=== PATIENT | female | born 1995 | race Caucasian/White ===

== ENCOUNTER → 2017-11-30 | Outpatient (CLI) | payer OTHER | LOC: M RAD 20:00 | DX: M25.571 Pain in right ankle and joints of right foot (principal); R60.9 Edema, unspecified | CPT/HCPCS: 73610 ==

== ENCOUNTER → 2017-11-30 | Outpatient (REF) | payer OTHER | LOC: M LAB REF 10:36 | DX: J02.9 Acute pharyngitis, unspecified (principal) ==

== ENCOUNTER 2018-09-19 21:16 | Emergency (ER) | payer OTHER ==
[2018-09-19 22:03] LABS: BASO # 0.1 10^3/uL (0.0-0.2); BASO % 0.7 % (0.0-1.0); EOS # 0.3 10^3/uL (0.0-0.50); EOS % 3.9 % (0.0-3.0); HEMOGLOBIN 14.5 g/dl (12.0-15.5); IMMATURE GRANULOCYTE % 0.1 % (0-3.0); LYMPH # 2.7 10^3/uL (1.5-6.5); LYMPH % 39.4 % (24.0-44.0); MEAN CORPUSCULAR HEMOGLOBIN 29.5 pg (27.0-33.0); MEAN CORPUSCULAR HGB CONC 34.5 g/dl (32.0-36.5); MEAN CORPUSCULAR VOLUME 85.4 fl (80.0-96.0); MONO # 0.6 10^3/uL (0.0-0.8); MONO % 8.1 % (0.0-5.0); NEUTROPHILS # 3.2 10^3/uL (1.8-7.7); NEUTROPHILS % 47.8 % (36.0-66.0); PLATELET COUNT, AUTOMATED 255 10^3/uL (150-450); RED BLOOD COUNT 4.92 10^6/uL (4.00-5.40); WHITE BLOOD COUNT 6.8 10^3/uL (4.0-10.0)
[2018-09-19 22:09] LABS: CONTROL LINE HCG INT CTR LINE PRESENT; HCG, SERUM QUALITATIVE NEGATIVE (NEGATIVE)
[2018-09-19 22:09] LABS: D-DIMER QUANT 1089.1 ng/ml (<500)
[2018-09-19 22:25] LABS: ANION GAP 9 MEQ/L (8-16); BLOOD UREA NITROGEN 11 MG/DL (7-18); CALCIUM LEVEL 9.3 MG/DL (8.5-10.1); CARBON DIOXIDE LEVEL 25 MEQ/L (21-32); CHLORIDE LEVEL 105 MEQ/L (98-107); CK-MB VALUE MASS < 1.0 NG/ML (<3.6); CPK CREATINE PHOSPHOKINASE 54 U/L (26-192); CREATININE FOR GFR 1.15 MG/DL (0.55-1.30); FREE T4 0.93 NG/DL (0.76-1.46); GLOMERULAR FILTRATION RATE > 60.0 (>60); GLUCOSE, FASTING 94 MG/DL (70-100); MAGNESIUM LEVEL 1.9 MG/DL (1.8-2.4); MB/CK RELATIVE INDEX 1.85 (< OR =4); POTASSIUM SERUM 3.8 MEQ/L (3.5-5.1); SODIUM LEVEL 139 MEQ/L (136-145); TROPONIN I < 0.02 NG/ML (< 0.10)
[2018-09-19] MEDS ORDERED: ISOVUE-370 76% 100ML VIAL (Q9967) As Ordered (22:45)
== END 2018-09-20 01:05 | disposition home or self-care (01) ==
LOC: M ED 09-20 01:05
DX: R00.2 Palpitations (principal); R07.89 Other chest pain
CPT/HCPCS: Q9967

== ENCOUNTER 2019-03-21 20:54 | Emergency (ER) | payer OTHER ==
[~2019-03-21] VITALS: Ht 170.2 cm; Wt 63.6 kg
[~2019-03-21 20:54] MED LIST: LO LTAB PO
[2019-03-21] MEDS ORDERED: OMEP-221 (21:14)
[2019-03-21] MEDS ORDERED: RANI150T14 (21:14)
[2019-03-21] MEDS ORDERED: IBUP-1422 PO (21:14)
[2019-03-21] MEDS ORDERED: METO50TA7 (21:14)
[2019-03-21 22:27] LABS: MONO SCRN NEGATIVE (NEGATIVE)
[2019-03-21 22:52] VITALS: BP 130/67
== END 2019-03-21 22:58 | disposition home or self-care (01) ==
LOC: M ED 20:54
DX: J02.9 Acute pharyngitis, unspecified (principal); B34.9 Viral infection, unspecified; K21.9 Gastro-esophageal reflux disease without esophagitis; Z79.899 Other long term (current) drug therapy

== ENCOUNTER → 2019-06-08 | Outpatient (CLI) | payer OTHER ==
[~2019-06-08] MED LIST changes: +IBUP-1422 PO; +METO50TA7; +OMEP-221; +RANI150T14
[2019-06-14 14:07] LABS: STREP PNEUMO TYPE 1 <0.1 ug/mL (>1.3); STREP PNEUMO TYPE 12F 1.6 ug/mL (>1.3); STREP PNEUMO TYPE 14 1.7 ug/mL (>1.3); STREP PNEUMO TYPE 18C 8.6 ug/mL (>1.3); STREP PNEUMO TYPE 19A >10.6 ug/mL (>1.3); STREP PNEUMO TYPE 19F 5.2 ug/mL (>1.3); STREP PNEUMO TYPE 23F 0.2 ug/mL (>1.3); STREP PNEUMO TYPE 3 13.5 ug/mL (>1.3); STREP PNEUMO TYPE 4 0.1 ug/mL (>1.3); STREP PNEUMO TYPE 6B <0.1 ug/mL (>1.3); STREP PNEUMO TYPE 7F 0.3 ug/mL (>1.3); STREP PNEUMO TYPE 8 0.3 ug/mL (>1.3); STREP PNEUMO TYPE 9N <0.1 ug/mL (>1.3); STREP PNEUMO TYPE 9V 0.2 ug/mL (>1.3)
== END ==
LOC: M SMT 14:54
PROVIDERS: ATTEND Physician Assistant
DX: J06.9 Acute upper respiratory infection, unspecified (principal)